=== PATIENT | female | born 1985 | race Caucasian/White ===

== ENCOUNTER 2017-12-03 23:03 | Emergency (ER) | payer BC ==
[2017-12-03] MEDS ORDERED: ONDANSETRON 4 MG/2 ML VIAL ONE (23:50)
[2017-12-03] MEDS ORDERED: NA CHLORIDE 0.9% 1,000 ML ONE (23:50)
[2017-12-04 00:05] LABS: Absolute Lymphocytes (CBC) 2.4 K/uL (0.7-4.9); Absolute Monocytes 0.8 K/uL (0.1-1.3); Absolute Neutrophil 3.7 K/uL (1.8-8.0); Basophils % 0.6 % (0-1.3); Eosinophils % 3.9 % (0-4.4); Hematocrit 43.9 % (36.0-45.0); Lymphocytes % 32.9 % (15.3-44.8); MCH 29.5 pg (27.0-35.0); MCV 84.4 fL (80-100); MPV 9.1 fL (7.6-11.3); Monocytes % 11.4 % (3.3-12.3)
[2017-12-04 00:24] LABS: Albumin 3.8 g/dL (3.4-5.0); Bilirubin Direct 0.2 mg/dL (0-0.2); Bilirubin Total 1.1 mg/dL (0.2-1.0); Potassium 3.1 mmol/L (3.5-5.1); Protein, Total 8.3 g/dL (6.4-8.2)
[2017-12-04] MEDS ORDERED: MULTIVITAMINS 10 ML VIAL (INJ) IV ONE (00:33)
[2017-12-04] MEDS ORDERED: THIAMINE 200 MG/2 ML INJ ONE (00:33)
[2017-12-04] MEDS ORDERED: FOLIC ACID 5 MG/ML VIAL ONE (00:36)
[2017-12-04] MEDS ORDERED: NA CHLORIDE 0.9% 1,000 ML ONE (00:36)
[2017-12-04] MEDS ORDERED: DEXAMETHASONE 4 MG/ML VIAL ONE (00:57)
[2017-12-04] MEDS ORDERED: KCL 20 MEQ/100 mL IVPB 20 MEQ/100 ML BAG IV ONE (00:58)
--- NOTE | 2017-12-04 02:44 | ER ---
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 Transition of care: patient was not received from another setting of care. Onset of symptoms was November 21, 2017. Risk Assessment: Do you want to hurt yourself or someone else? Patient reports no desire to harm self or others. Initial Sepsis Screen: Does the patient meet any 2 criteria? No. Patient's initial sepsis screen is negative. Does the patient have a suspected source of infection? No. Patient's initial sepsis screen is negative. Care prior to arrival: None. 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 - Social history:: Smoking status: Patient/guardian denies using tobacco, Patient/guardian denies using alcohol, street drugs. - Ebola Screening: : No symptoms or risks identified at this time. Screenin:20 Abuse screen: Denies threats or abuse. Nutritional screening: No deficits noted. jd3 Tuberculosis screening: No symptoms or risk factors identified. Fall Risk Ambulatory Aid- None/Bed Rest/Nurse Assist (0 pts). Gait- Normal/Bed Rest/Wheelchair (0 pts) Mental Status- Oriented to own ability (0 pts). [place] Fall Scale indicates No Risk (0-24 pts). Assessment: 23:16 General: Appears in no apparent distress. uncomfortable, Behavior is calm, cooperative, jd3 appropriate for age. Pain: Complains of pain in abdomen Pain currently is 4 out of 10 on a pain scale. Quality of pain is described as aching. Neuro: Level of Consciousness is awake, alert, obeys commands, Oriented to person, place, time, situation, Appropriate for age. Cardiovascular: Capillary refill < 3 seconds Patient's skin is warm and dry. Respiratory: Airway is patent Respiratory effort is even, unlabored, Respiratory pattern is regular, symmetrical. GI: Abdomen is round non-distended, Bowel sounds present X 4 quads. Abd is soft and non tender X 4 quads. Reports nausea, vomiting. : No signs and/or symptoms were reported regarding the genitourinary system. EENT: No signs and/or symptoms were reported regarding the EENT system. Derm: Skin is intact, Skin is dry, Skin is normal, Skin temperature is warm. Musculoskeletal: Circulation, motion, and sensation intact. Range of motion: intact in all extremities. 12/04 00:48 Reassessment: Patient appears in no apparent distress at this time. Patient and/or jd3 family updated on plan of care and expected duration. Pain level reassessed. Patient is alert, oriented x 3, equal unlabored respirations, skin warm/dry/pink. 01:50 Reassessment: Patient appears in no apparent distress at this time. Patient and/or jd3 family updated on plan of care and expected duration. Pain level reassessed. Patient is alert, oriented x 3, equal unlabored respirations, skin warm/dry/pink. 03:30 Reassessment: Patient and/or family updated on plan of care and expected duration. Pain ea level reassessed. Patient is alert, oriented x 3, equal unlabored respirations, skin warm/dry/pink. awaiting on IV fluids to complete. 03:47 Reassessment: Patient and/or family updated on plan of care and expected duration. Pain ea level reassessed. Patient is alert, oriented x 3, equal unlabored respirations, skin warm/dry/pink. Discharge instruction given to patient,verbalized the understanding of instructions. Awaiting on IV fluids to complete. 03:59 Reassessment: Patient and/or family updated on plan of care and expected duration. Pain ea level reassessed. Patient is alert, oriented x 3, equal unlabored respirations, skin warm/dry/pink. Pt awaiting on family for transport home. 04:20 Reassessment: Patient and/or family updated on plan of care and expected duration. Pain ea level reassessed. Patient is alert, oriented x 3, equal unlabored respirations, skin warm/dry/pink. Pt discharged from ED. Ambulating with family member. Patient denies pain at this time. Patient states feeling better. Vital Signs: 12/03 23:18 BP 111 / 91; Pulse 108; Resp 14 S; Temp 98.6(O); Pulse Ox 98% on R/A; Weight 108.86 kg bb (R); Height 5 ft. 5 in. (165.10 cm) (R); Pain 4/10; 12/04 00:48 BP 115 / 81; Pulse 91; Resp 16 S; Pulse Ox 98% on R/A; jd3 01:49 BP 98 / 64; Pulse 89; Resp 16 S; Pulse Ox 98% on R/A; jd3 03:57 BP 112 / 74; Pulse 70; Resp 18; Temp 97.8(O); Pulse Ox 98% ; Pain 0/10; ea 12/03 23:18 Body Mass Index 39.94 (108.86 kg, 165.10 cm) bb ED Course: 12/03 23:04 Patient arrived in ED. ds1 23:08 Shawn Alejandra, RAVIN is Primary Nurse. jd3 23:11 Amarjit Wilson MD is Attending Physician. tw4 23:17 Triage completed. bb 23:18 Arm band placed on Patient placed in an exam room, on a stretcher, on pulse oximetry. bb Family accompanied patient. 23:21 Patient has correct armband on for positive identification. Bed in low position. Call jd3 light in reach. Side rails up X 1. Adult w/ patient. 23:42 Inserted saline lock: 20 gauge in right antecubital area, using aseptic technique. jd3 Blood collected. placed by Jackeline ALICIA. 12/04 03:49 No provider procedures requiring assistance completed. ea 04:15 IV discontinued, intact, bleeding controlled, No redness/swelling at site. Pressure ea dressing applied. Administered Medications: 12/03 23:50 Drug: NS 0.9% 1000 ml Route: IV; Rate: 1 bolus; Site: right antecubital; jd3 12/04 01:01 Follow up: Response: No adverse reaction; IV Status: Completed infusion; IV Intake: jd3 1000ml 12/03 23:50 Drug: Zofran 4 mg Route: IVP; Site: right antecubital; jd3 12/04 00:25 Follow up: Response: No adverse reaction jd3 00:38 Drug: Banana Bag - (NS 0.9% 1000 ml, foLIC Acid 1 mg, Thiamine 100 mg, Multivitamin 1 jd3 amp) Route: IV; Rate: calculated rate; Site: right antecubital; 03:58 Follow up: Response: No adverse reaction; IV Status: Completed infusion; IV Intake: ea 1000ml 01:00 Drug: Decadron 10 mg {Note: Per provider's order's: given through Right AC IV..} Route: jd3 IM; Site: Other; 03:42 Follow up: Response: No adverse reaction ea 01:01 Drug: Potassium Chloride 20 mEq Route: IV; Rate: bolus; Site: right antecubital; jd3 03:43 Follow up: Response: No adverse reaction; IV Status: Completed infusion ea Intake: 01:01 IV: 1000ml; Total: 1000ml. jd3 03:58 IV: 1000ml; Total: 2000ml. ea Outcome: 02:43 Discharge ordered by . tw4 03:48 Discharge instructions given to patient, Instructed on discharge instructions, follow ea up and referral plans. Demonstrated understanding of instructions, follow-up care. 04:21 Discharged to home ambulatory, with family. ea 04:21 Condition: improved 04:22 Patient left the ED. ea Signatures: Angela Vasquez ds1 Jackeline Wen RN RN Shellie Calvo RN RN ea Davies, Jonathon, RN RN jd3 Wadley, Terrence, MD MD tw4
--- NOTE | 2017-12-04 02:44 | EDPHYS ---
Physician Documentation [facility] Name: Josselin Camejo Age: 31 yrs Sex: Female : 1985 Arrival Date: 12/03/2017 Time: 23:04 Bed 20 Private MD: ED Physician Amarjit Wilson HPI: 12/04 02:15 This 31 yrs old Female presents to ER via Ambulatory with complaints of tw4 Nausea/Vomiting, Urinary Problem, Dehydration. 02:15 The patient presents to the emergency department with nausea, that is moderate. Onset: tw4 The symptoms/episode began/occurred 2 week(s) ago. Possible causes: unknown. The symptoms are aggravated by nothing. Severity of symptoms: At their worst the symptoms were moderate in the emergency department the symptoms are unchanged. The patient has not experienced similar symptoms in the past. 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 - Social history:: Smoking status: Patient/guardian denies using tobacco, Patient/guardian denies using alcohol, street drugs. - Ebola Screening: : No symptoms or risks identified at this time. ROS: 12/04 02:15 Constitutional: Negative for fever, chills, and weight loss, Eyes: Negative for injury, tw4 pain, redness, and discharge, Cardiovascular: Negative for chest pain, palpitations, and edema, Respiratory: Negative for shortness of breath, cough, wheezing, and pleuritic chest pain, Back: Negative for injury and pain, MS/Extremity: Negative for injury and deformity, Skin: Negative for injury, rash, and discoloration. Abdomen/GI: Positive for nausea and vomiting, nausea, vomiting, and diarrhea, nausea, vomiting, Negative for abdominal pain, abdominal cramps, abdominal distension, anorexia. Exam: 02:15 Constitutional: This is a well developed, well nourished patient who is awake, alert, tw4 and in no acute distress. Head/Face: Normocephalic, atraumatic. Chest/axilla: Normal chest wall appearance and motion. Nontender with no deformity. No lesions are appreciated. Cardiovascular: Regular rate and rhythm with a normal S1 and S2. No gallops, murmurs, or rubs. Normal PMI, no JVD. No pulse deficits. Respiratory: Lungs have equal breath sounds bilaterally, clear to auscultation and percussion. No rales, rhonchi or wheezes noted. No increased work of breathing, no retractions or nasal flaring. Abdomen/GI: Soft, non-tender, with normal bowel sounds. No distension or tympany. No guarding or rebound. No evidence of tenderness throughout. Back: No spinal tenderness. No costovertebral tenderness. Full range of motion. MS/ Extremity: Pulses equal, no cyanosis. Neurovascular intact. Full, normal range of motion. Neuro: Awake and alert, GCS 15, oriented to person, place, time, and situation. Cranial nerves II-XII grossly intact. Motor strength 5/5 in all extremities. Sensory grossly intact. Cerebellar exam normal. Normal gait. Vital Signs: 12/03 23:18 BP 111 / 91; Pulse 108; Resp 14 S; Temp 98.6(O); Pulse Ox 98% on R/A; Weight 108.86 kg bb (R); Height 5 ft. 5 in. (165.10 cm) (R); Pain 4/10; 12/04 00:48 BP 115 / 81; Pulse 91; Resp 16 S; Pulse Ox 98% on R/A; jd3 01:49 BP 98 / 64; Pulse 89; Resp 16 S; Pulse Ox 98% on R/A; jd3 03:57 BP 112 / 74; Pulse 70; Resp 18; Temp 97.8(O); Pulse Ox 98% ; Pain 0/10; ea 12/03 23:18 Body Mass Index 39.94 (108.86 kg, 165.10 cm) bb MDM: 12/03 23:11 Patient medically screened. tw4 12/04 02:15 Differential diagnosis: Nonspecific abd pain, cholecystitis. Data reviewed: vital tw4 signs, nurses notes. Data interpreted: Pulse oximetry: Interpretation: normal. Counseling: I had a detailed discussion with the patient and/or guardian regarding: the historical points, exam findings, and any diagnostic results supporting the discharge/admit diagnosis. Medication response: IVF hydration. Special discussion: I discussed with the patient/guardian in detail that at this point there is no indication for admission to the hospital. It is understood, however, that if the symptoms persist or worsen the patient needs to return immediately for re-evaluation. ED course: Discussed case with pt's surgeon Dr Jarvis recommended that the patient receive IVF hydration and Decadron. Pt hydrated and received steroid and potassium replacement . 12/03 23:24 Order name: Amylase, Serum; Complete Time: 00:31 tw4 12/03 23:24 Order name: Basic Metabolic Panel; Complete Time: 00:31 tw4 12/03 23:24 Order name: CBC with Diff; Complete Time: 00:31 4 12/03 23:24 Order name: Hepatic Function; Complete Time: 00:31 4 12/03 23:24 Order name: Lipase; Complete Time: 00:31 tw4 12/03 23:24 Order name: IV Saline Lock; Complete Time: 23:45 tw4 12/03 23:24 Order name: Labs collected and sent; Complete Time: 23:45 tw4 Administered Medications: 12/03 23:50 Drug: NS 0.9% 1000 ml Route: IV; Rate: 1 bolus; Site: right antecubital; jd3 12/04 01:01 Follow up: Response: No adverse reaction; IV Status: Completed infusion; IV Intake: jd3 1000ml 12/03 23:50 Drug: Zofran 4 mg Route: IVP; Site: right antecubital; jd3 12/04 00:25 Follow up: Response: No adverse reaction jd3 00:38 Drug: Banana Bag - (NS 0.9% 1000 ml, foLIC Acid 1 mg, Thiamine 100 mg, Multivitamin 1 jd3 amp) Route: IV; Rate: calculated rate; Site: right antecubital; 03:58 Follow up: Response: No adverse reaction; IV Status: Completed infusion; IV Intake: ea 1000ml 01:00 Drug: Decadron 10 mg {Note: Per provider's order's: given through Right AC IV..} Route: jd3 IM; Site: Other; 03:42 Follow up: Response: No adverse reaction ea 01:01 Drug: Potassium Chloride 20 mEq Route: IV; Rate: bolus; Site: right antecubital; jd3 03:43 Follow up: Response: No adverse reaction; IV Status: Completed infusion ea Disposition: 12/04/17 02:43 Discharged to Home. Impression: Dehydration. - Condition is Stable. - Discharge Instructions: Dehydration, Adult, Hypokalemia. - Medication Reconciliation Form, Thank You Letter, Antibiotic Education, Prescription Opioid Use form. - Follow up: Private Physician; When: Upon discharge from the Emergency Department; Reason: Further diagnostic work-up, Recheck today's complaints, Re-evaluation by your physician. - Problem is new. - Symptoms have improved. Signatures: Dispatcher [employer] [facility] Jackeline Wen, RN RN Shellie Calvo RN RN Shawn Choe RN RN jd3 Amarjit Wilson MD MD tw4 Corrections: (The following items were deleted from the chart) 01:29 12/03 23:25 Creatinine for Radiology+[id number].LAB.BRZ ordered. [facility] 12/04 04:22 02:43 12/04/2017 02:43 Discharged to Home. Impression: Dehydration. Condition is ea Stable. Forms are Medication Reconciliation Form, Thank You Letter, Antibiotic Education, Prescription Opioid Use. Follow up: Private Physician; When: Upon discharge from the Emergency Department; Reason: Further diagnostic work-up, Recheck today's complaints, Re-evaluation by your physician. Problem is new. Symptoms have improved. tw4
== END 2017-12-04 04:22 | disposition home or self-care (01) ==
LOC: ER 23:03
DX: E86.0 Dehydration (principal)
CPT/HCPCS: 80048; 80076; 82150; 83690; 85025; 96361; 96365; 96366; 96372; 96375; 99284; J2405; J3411; J7030